=== PATIENT | female | born 2005 | race Caucasian/White ===

== ENCOUNTER 2024-12-09 06:59 | Outpatient (REF) | payer BC, SELFPAY ==
--- NOTE | ~2024-12-09 | US_ITS ---
CLINICAL HISTORY: AMENORRHEA US pelvis transabdominal and transvaginal with color Doppler Comparison: None Findings: Transabdominal scanning performed for overall anatomy. Transvaginal scanning performed for additional detail. LMP: 12/05/2024 Anteverted uterus, normal size and echotexture, measuring 6.2 x 2.3 x 4.1 cm. Possible arcuate uterus MRI would be confirmatory. Nabothian cysts. Well defined endometrium, measuring 2.0 mm in thickness. The right ovary measures, 3.8 x 2.2 x 1.9 cm. Normal sonographic appearance right ovary. The left ovary measures, 3.3 x 1.9 x 1.9 cm. Normal sonographic appearance left ovary. No adnexal masses or fluid collections. Trace free fluid Impression: 1. Equivocal arcuate uterus noncontrast MRI of the pelvis would be confirmatory. 2. Normal thickness endometrium. 3. Normal ovaries/adnexa. This document has been electronically signed by: Aurelio Shaw MD on 12/10/2024 07:41:50
--- OUTSIDE RECORDS SUMMARY | 2024-12-09 07:02 | XMS_ITS | Encounter Summary ---
Author Organization [facility] Address [address] [place] [address] [address] [place] [id number] Care Team Providers Care Employment Representative Name Role Phone Mireya Javier Md Primary Care Provider Unavailabl e Poc, Not Required Pcp Or Unavailable Unavail able Poc, Non [facility] Pcp Or Primary Care Provider Katie vailable Encounter Details Date Type Department Care Team (Late st Contact Info) Description 2003 [facility] [address] [place] [phone] SadiaRosalinda asher SINGLE LIVEBORN BY (Primary Dx) Social History Tobacco Use Types Packs/Day Years Used Date Smoking Tobacco: Never Smokeless Tobacco: Never Alcohol Use Standard Drinks/Week Comments Not Asked 0 (1 standard drink = 0.6 oz pur e alcohol) Comments No Sex and Gender Information Value Date Recorded Sex Assigned at Not on file Legal Sex Female 6:27 PM EDT Gender Identity Not on file Sexual Orientation Not on file documented as of this encounter Progress Notes * 2003 11:59 PM EDTName: Katarina Fleming : 2005Sex: female [facility]#: [id number] Address: [address] [place] [address] (home) Primary MD: DR. MIREYA JAVIER Primary site: [facility] pital: [facility] Mother's Name: ANGEL LUI Father's Name: NOT NOTED Siblings' names: NOT NOTED HISTORY Maternal Age: 39 years G 4 P 1 Ab LC Maternal HBsAg negative Maternal Blood Type: O+ Maternal Group B Strep: negative Pediatric History Vitals Length: 20 (0m) Weight: 8 lbs 14 oz (4.026 kg) HC: 36cm One: 9 Five: 9 Ten: Discharge We ight: 8 lbs 4 oz (3.754 kg) : YES Gestation Age: 38 wks Nourishment Method: Unknown P ediatrics History Comment Blo od type: not determined Quang: not done Hearing Screening: pass Immunization History: Hep B Vacci ne (Recombinant) 2003 HBIG given no Discharge Date: Matern al Complications: None noted Notes: V30.01 - SINGLE DELIVERY. TROUBLE NURSING. 774.6 - F ACIAL JAUNDICE NOTED 04/25. BILI 04/25 - 8.9. documented in this encounter Plan of Treatment Not on file documented as of this encounter Visit Diagnoses Diagnosis Single liveborn, born in hospital, delivered by delivery- Primary documented in this encounter Care Teams Employment Representative Relationship Specialty Start Date End Date Mireya Javier MD PCP - General 03 04/15/18 Poc, Not Required Pcp Or PCP - Payer 02/04/14 Poc, Non [facility] Pcp Or PCP - General 04/16/18 documented as of this encounter
--- OUTSIDE RECORDS SUMMARY | 2024-12-09 07:02 | XMS_ITS | Clinical Summary ---
[facility] Organization [facility] Address [address] [place] [address] [address] Care Team Providers Care Senior Capital Markets Specialist Name Role Phone Poc, Not Required Pcp Or Unavailable Unavail able Poc, Non Atrius Pcp Or Primary Care Provider Katie vailable Allergies No known active allergies Medications albuterol (PROAIR HFA) 90 mcg/actuation HFA Aerosol Inhaler Inhale 2 puffs as instructed every 4-6 hours as needed for cough or wheeze; rinse mouthpiece at least once a week 1 Inhaler 0 5 Active albuterol (PROAIR HFA) 90 mcg/actuation HFA Aerosol Inhaler Inhale 2 puffs as instructed with spacer every 4-6 hours as needed for cough or wheeze; rinse mouthpiece at least once a week 1 Inhaler 0 5 Active levalbuterol (XOPENEX HFA) 45 mcg/actuation HFA Aerosol InhalerIndicati ons:Wheezing 2 puffs with aerochamber 3-4 times a day till cough or wheeze gone 1 Inhaler 0 6 Active Active Problems Problem Noted Date Diagnosed Date Vesicoureteral reflux 01/22/2004 Immunizations Name Administration Dates Next Due DTaP Vaccine 05/01/2008, 4,2003,08/25,2003 HFlu B Conj (PRP-T) 07/25/2004,2003,2002 HFlu B Conj (Unspecified Formulation) 2003 Hep A Vaccine Pedi/Adol-2 Dose Sched 03/06/2017 Hep B Vaccine (Unspecified Formulation) 01/25/2004,2003,2003 Influenza Vaccine (Unspecifi ed Formulation) 07/08/2010,05/04/2009 MMR Vaccine 05/01/2008,2004 Meningococcal ACWY (Menactra ) Conjugate Vaccine 03/25/2015 Pneumococ/Pedi-Conjugate (PCV7) 07/25/20 04,2004,2003,06/25 Polio Vaccine (Inactivated) 05/01/2008,0 2004,2003,06/25 TdaP 03/25/2015 Varicella Vaccine 05/01/2008,2004 Family History Medical History Relation Comments Other Maternal Grandfather aneurysm af ter eye surgery Cancer Maternal Grandmother Hypertension Paternal Grandfather Hypertension Paternal Grandmother Relation Status Comments Maternal Grandfather Maternal Grandmother Paternal Grandfather Alive Paternal Grandmother Alive Social History Tobacco Use Types Packs/Day Years Used Date Smoking Tobacco: Never Smokeless Tobacco: Never Alcohol Use Standard Drinks/Week Comments Not Asked 0 (1 standard drink = 0.6 oz pur e alcohol) Comments No Sex and Gender Information Value Date Recorded Sex Assigned at Not on file Legal Sex Female 6:27 PM EDT Gender Identity Not on file Sexual Orientation Not on file History Length Weight Head Circum Date/Time Gestation Age D/C Weight APGARs Delivery Method Feeding 20 (50.8 cm) 8 lb 14 oz (4.026 kg) 14.17 (36 cm) 2005 38 wks 8 lb 4.4 oz 1min: 9 5mi n: 9 Unknown Obstetrics History Last Filed Vital Signs Vital Sign Reading Time Taken Comments Blood Pressure 104/62 03/06/2017 1:40 PM EDT Pulse 80 10/21/2015 5:09 PM EDT Temperature 36.7 ??C (98 ??F) 10/21/2015 5:09 PM EDT Respiratory Rate - - Oxygen Saturation 98% 10/21/2015 5:09 PM EDT Inhaled Oxygen Concentration - - Weight 54.9 kg (121 lb 2 oz) 03/06/2017 1:40 PM EDT Height 162.6 cm (5' 4 ) 03/06/2017 1:40 PM EDT Body Mass Index 20.79 03/06/2017 1:40 PM EDT Plan of Treatment Health Maintenance Due Date Last Done Comments OFFICE VISIT 2003 HEPATITIS A VACCINE (2 of 2 - 2-dose series) 09/06/2017 03/06/2017 HPV VACCINE (1 - 3-dose series) 2018 CHLAMYDIA SCREENING FEMALE 16-24 2019 HEP B INITIAL SCREENING 2021 HEP C SCREENING 2021 HIV SCREENING 2021 PERIODIC HEALTH REVIEW 2022 LIPID SCREENING 2023 COVID-19 Vaccine ( season) 2024 PAP: UPDATE W EDIT MODIFIERS 2024 DTAP/TDAP/TD VACCINE (7 - Td or Tdap) 03/25/2025 03/25/2015, 05/01/2008, 07/25/2004, Additional history exists FLU SEASONAL (Season Ended) 2025 07/08/2010, 05/04/2009 HEPATITIS B VACCINE Completed 01/25/2004, 2003, 2003 HAEMOPHILUS INFLUENZA VACCINE Completed 07/25/2004, 2003, 2003, Additional history exists PNEUMOCOCCAL VACCINE(S) Aged Out 07/25/20 04, 2004, 2003, Additional history exists No longer eligible based on patient's age to complete this topic POLIO VACCINE Completed 05/01/2008, 04/06, 2003, Additional history exists RUBELLA Completed 05/01/2008, 2004 MENINGOCOCCAL VACCINE (ACWY) Aged Out 03/25/2015 No longer eligible based on patient's age to complete this topic RSV Vaccine Infant//toddler Aged Out No longer eligible based on patient's age to complete this topic Care Teams Senior Capital Markets Specialist Relationship Specialty Start Date End Date Poc, Not Required Pcp Or PCP - Payer 02/04/14 Poc, Non Atrius Pcp Or PCP - General 04/16/18
--- OUTSIDE RECORDS SUMMARY | 2024-12-09 07:02 | XMS_ITS | Clinical Summary ---
Author Organization [facility] Address [address] [place] [phone] Phone Care Team Providers Care Physical Plant Employee Name Role Phone Kim Kim MD Primary Care Provider [phone] Kim Kim MD Unavailable [phone] Allergies No known active allergies Medications Medication Sig Dispensed Refills Start Date End Date Status tretinoin (RETIN-A) 0.025 % cream Apply topically nightly at bedtime. 01/11/2024 Active sulfamethoxazole-tri methoprim (BACTRIM DS) 800-160 mg per tablet Take 1 tablet by mouth 2 (two) times a day. 01/10/2024 Active doxycycline monohydrate (MONODOX) 100 MG capsule Take 100 mg by mouth 2 (two) times a day. 01/11/2024 Active levothyroxine (SYNTHROID) 125 MCG tablet Take 1 tablet (125 mcg total) by mouth every morning. 90 tablet 1 08/28/2024 Active Active Problems Problem Noted Date Diagnosed Date Amenorrhea 02/25/2024 Assessment & Plan (02/25/2024 4:28 PM EDT): S/p depo Last dose 08/29 Has not had menses and denies SA Denies other sx Will be seeing obstetrics gyn physician- rec appt in next 3 mos so can address if menses hasn't returned Depression with anxiety 10/10/2021 Assessment & Plan (02/25/2024 3:32 PM EDT): Sx improved Not taking meds Has not seen therapist Will cont to monitor Assessment & Plan (10/10/2021 8:31 PM EST): Disc resources at length with pt. Pt does not want any counseling or medication if there is risk her parents will know about it as they do not support these interventions. Pt continues on parents insurance. Situation disc w PCP. Offer for PASTEURIZER HELPER or PCP to meet with parents for disc, patient declines. Offered new zpd-dky-opuxyme counseling, pt does not currently have a job. Pt declines any interventions today. States she is safe, not currently thinking of harming herself. Will be at college hopefully in 5mo where she can access counseling without insurance. Contract for safety with pt. Advised to please call back if worsening and to schedule follow up in 1 mo to recehck Dysuria 02/16/2021 Assessment & Plan (02/16/2021 6:02 PM EDT): Dysuria for 24 hours. U/A + 1 WBC. U/C with sens sent. Urine HCG negative. Reviewed importance of completing medications as directed. Increase intake of water. Call if worse or no better in 2-3 days. Current moderate episode of major depressive disorder without prior episode 10/18/2020 Assessment & Plan (05/15/2023 4:37 PM EDT): Pt continues on Fluoxetine 30mg, increased from 20mg 2 mo ago Feels it has helped her depression but may be causing some fatigue. Jordana SI/HI Advised to please schedule an appt with health services or with this office when home for exam/labs for fatigue. If not a medical issue may need to change dosing or medication To follow up with office after appt with health provider. Continue with counselor, just restarted 1 week ago Assessment & Plan (03/22/2023 12:45 PM EDT): D/w pt rec counselor as soon as returns to [facility] Will adjust fluoxetine to 30mg and f/u by VV in 1mos Sooner prn Use and potential SE including increase risk of SI discussed Pt agrees to plan Assessment & Plan (02/15/2023 10:06 AM EDT): With some anxiety D/w pt at length Denies self harm/SI Will start fluoxetine 10mg qd x7d, then 20mg qd Use and potential SE discussed including increased risk of SI F/u 4weeks, sooner prn Also d/w patient she needs to see therapist- rec set up appt with counselor at [facility] Assessment & Plan (10/18/2020 7:46 PM EDT): D/w pt at length Many stressors due to medical issues, hybrid learning, family stressors Pt would like to speak to counselor-will have speak to Moraima AMIN today Will pursue outpt therapy ACL tear 04/21/2020 Assessment & Plan (05/11/2021 11:13 AM EDT): S/p repair Followed by ortho Starting PT next wk Assessment & Plan (05/03/2020 9:43 AM EDT): Due to have surgery in couple of weeks Sprain of medial collateral ligament of right kn ee 04/21/2020 Pain in right knee 04/21/2020 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 Clinically euthyroid except for a little fatigue, but TSH likely elevated due to the fact that she is missing a lot of doses of her medication. I have advised her to consistently take her medication, or if she forgets, to double up the next day. Once she is consistently taking the medication, I would repeat labs in 1 month. Interestingly, ciprofloxacin can decrease thyroid absorption. Glad that she is improved and off the medication. Assessment & Plan (10/18/2020 7:46 PM EDT): Will check TSH given recent fatigue and dysmorphic mood Assessment & Plan (05/03/2020 9:43 AM EDT): Followed by endo-no sx and euthyroid last mos Due for repeat labs this mos Assessment & Plan (04/02/2020 10:15 AM EDT): Her hypothyroidism is due to Steph's thyroiditis. Interesting she accidentally took double the dose of levothyroxine and her TFT's after 2 months on the higher dose was normal. Thus she may need this much. However, since TSH is borderline low, will repeat in 1 month to make sure her levels stay normal, or sooner if symptoms of hyperthyroidism. Discussed symptoms and how she can double up the next day if she misses a dose. Assessment & Plan (09/18/2019 1:06 PM EST): Based upon her degree of TSH elevation, Katarina has primary hypothyroidism of some duration. Resolved Problems Problem Noted Date Diagnosed Date Resolved Date Urinary tract infection without hematuria 07/02/2021 02/15/2023 Assessment & Plan (07/02/2021 12:45 PM EST): Patient with symptoms appear consistent with a urinary tract infection. Patient taking zuqx-wsx-ldfrjaq medication urine is orange unable to get a UA in office. We will send you for UA INJECTOR ASSEMBLER. We will treat presumptively for urinary tract infection Macrobid 1 tab 2 times a day for 7 days patient previously tested positive for UTI on 05/18/2021 susceptible to Macrobid. Discussed with patient she should follow-up with her PCP due to frequent urinary tract infections. Plenty of fluids hqdx-nlr-fpvzyad medication symptom control Oral contraceptive prescribed 05/11/2021 02/15/2023 Assessment & Plan (05/11/2021 11:14 AM EDT): LMP 2wks ago Will try loestrin Reviewed use and potential SE F/u in 3mos, sooner prn Immunizations Name Administration Dates Next Due COVID-19 (Pre-05/28) Pfizer Vaccine, mRNA, PF 08/03/2021,07/06/2021 DTaP 05/01/2008, 4,2003,08/25,2003 HPV9 02/25/2024,02/15/2023 Hepatitis A, ped/adol, 2 dose 04/24/2019, 017 Hepatitis B, unspecified formulation 01/25/2004, 2003,2003 Hib, unspecified formulation 2003 Hib,PRP-T 07/25/2004,2003,2003 IPV 05/01/2008, 4,2003,06/25 Influenza Quadrivalent Prese rvative Free IM 05/11/2021,05/03/2020 Influenza, Unspecified Formulation 07/08/2010, MMR 05/01/2008,2004 Meningococcal B, OMV (MenB-4C) 05/11/2021,2019 Meningococcal MCV4O 05/03/2020 Meningococcal MCV4P 03/25/2015 Pneumococcal conjugate, PCV 7 07/25/2004 ,2004,2003,06/25 Tdap 03/25/2015 Varicella 05/01/2008,2004 Family History Medical History Relation Comments No Known Problems Brother No Known Problems Father Heart attack Maternal Grandfather Lethal MS a t age 52 Breast cancer Maternal Grandmother Cancer Maternal Grandmother Intestinal Cervical cancer Maternal Grandmother Skin cancer (non-melanoma) Maternal Grandmother Hypothyroidism Mother Heart failure Paternal Grandfather Onset after mid-50s. Kidney disease Paternal Grandmother Thrombophilia Neg Hx Relation Status Comments Brother Alive Father Maternal Grandfather Maternal Grandmother Mother Paternal Grandfather Paternal Grandmother Social History Tobacco Use Types Packs/Day Years Used Date Smoking Tobacco: Never Smokeless Tobacco: Never Tobacco Cessation:Counseling Given: Not Answered Alcohol Use Standard Drinks/Week Comments Not Currently 0 (1 standard drink = 0.6 oz pure alcohol) rare- couple times a semester Education Answer Date Recorded Are you interested in more education? Not on kinjal e 11/30/2022 Are you concerned about learning? Not on file 11/30/2022 No 11/30/2022 No 11/30/2022 Digital Access Answer Date Recorded No 01/02/2023 No 01/02/2023 Reliable internet access at home? Not on file 01/02/2023 Device with a working camera? Not on file Intimate Partner Violence Answer Date R ecorded Are you denied basic needs s uch as food, clothing, or medical care? No 03/29/2023 In the past 12 months have y ou been in a relationship with a person who hurts, threatens, or tries to control you? No 03/29/2023 Are you denied basic needs s uch as food, clothing, or medical care? No 03/29/2023 In the past 12 months have y ou been in a relationship with a person who hurts, threatens, or tries to control you? No 03/29/2023 Sex and Gender Information Value Date Recorded Sex Assigned at Female 11/28/2022 10:47 PM EDT Gender Identity Female 05/18/2021 9:54 AM EDT Sexual Orientation Not on file Last Filed Vital Signs Vital Sign Reading Time Taken Comments Blood Pressure 118/60 02/25/2024 3:13 PM EDT Pulse 88 02/25/2024 3:13 PM EDT Temperature 36.9 ??C (98.5 ??F) 02/25/2024 3:13 PM ED T Respiratory Rate 10 03/29/2023 12:10 PM EDT Oxygen Saturation 98% 02/25/2024 3:13 PM EDT Inhaled Oxygen Concentration - - Weight 61.3 kg (135 lb 2 oz) 02/25/2024 3:13 PM EDT Height 164.5 cm (5' 4.75 ) 02/25/2024 3:13 PM ED T Body Mass Index 22.66 02/25/2024 3:13 PM EDT Plan of Treatment Upcoming Encounters Date Type Department Care Team (Late st Contact Info) Description 02/25/2025 3:00 PM EDT Office Visit [facility] - [place] [address] [facility] [place] [phone] Unknown, Unknown, MD Kim, Kim Garcia MD [address] [place] [address] [place] [address] [email or web address] Health Maintenance Due Date Last Done Comments INFLUENZA VACCINE (#1) 2024 , 05/03/2020, 07/08/2010, Additional history exists COVID-19 VACCINE ( - season) 2024 08/03/2021, 07/06/2021 PAP SMEAR 2024 HPV VACCINES (3 - 3-dose series) 05/19/2024 02/25/2024, 02/15/2023 DEPRESSION SCREENING 02/24/2025 02/25/2024, 05/11/20 21 SMOKING Hx and SMOKELESS TOBACCO SCREENING 02/24/2025 02/25/2024 TSH LEVEL 02/24/2025 02/25/2024, 10/05, 11/28/2022, Additional history exists Adult Td,Tdap Booster 03/25/2025 03/25/2015 COMBINED DTaP,Tdap,Td (7 - Td or Tdap) 03/25/2025 03/25/2015, 05/01/2008, 07/25/2004, Additional history exists HIB VACCINES Completed 07/25/2004, 10/04, 2003, Additional history exists PNEUMOCOCCAL VACCINES (0-49 years) Aged Out 07/25/2004, 2004, 2003, Additional history exists No longer eligible based on patient's age to complete this topic MMR VACCINES Completed 05/01/2008, 2004 HEPATITIS A VACCINES Completed 04/24/2019, 03/06/20 MENINGOCOCCAL VACCINES (ACWY) Completed 05/03/2020, 03/25/2015 ADOLESCENT UNIVERSAL LIPID SCREENING Completed 05/11/2021 HEPATITIS C SCREENING Completed 08/29/2022 , 08/29/2022, 05/11/2021 HIV ONE-TIME SCREENING (18-65 YEARS) Completed 08/29/2022 Medical Devices Implanted Type Area Automotive Welder Device Identifier Shelf Expiration Date Model / Serial / Lot Pin Pin Left: Knee Procedures Procedure Name Priority Date/Time Associated Diagnosis Comments TSH Routine 02/25/2024 3:57 PM EDT 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 Values above 6.270 muIU/mL suggust hypothyroid states. Values between 0.01-0.51 muIU/mL may be on a thyroidal or non thyroidal basis and require further evaluation. Values above 6.270 muIU/mL suggust hypothyroid states. Blood 02/25/2024 3:57 PM EDT 02/25/2024 4:02 PM EDT Kim Kim MD LAB BLOOD ORDERABL ES [facility], [address] [address], [facility] * Hepatitis C antibody, qualitative (08/29/2022 1:26 PM EST) HCV ANTIBODY Non-Reacti ve Non-Reacti ve [facility], [facility] Blood 08/29/2022 1:26 PM EST 08/29/2022 1:33 PM EST Marlys العراقي CNP LAB BLOOD ORDERABL ES Performing Organization Address City/[facility] Co de Phone Number [address] [address], [facility] * Lipid panel (05/11/2021 11:18 AM EDT) HDL 48 >39 mg/dL [facility] CHOLESTEROL 167 0 - 169 mg/dL [facility] TRIGLYCERIDES 88 0 - 89 mg/dL [facility] LDL 101 50 - 129 mg/dL [facility] NON-HDL CHOLESTEROL 119 mg/dL [facility] Comment:Reference Range: The non-HDL Cholesterol value should not exceed the desired LDL-C by more than 30 mg/dl. Blood 05/11/2021 11:1 8 AM EDT 05/11/2021 11:27 AM EDT Kim Kim MD LAB BLOOD ORDERABL ES Performing Organization Address [facility] Co de Phone Number [address] [address], [facility] from Last 3 Months or Most Recently Relevant to Health Maintenance Care Teams Physical Plant Employee Relationship Specialty Start Date End Date Kim Kim MD [address] [place] [address] [email or web address] PCP - General Pediatrics 02/10/19 Kim Kim MD [address] [place] [address] [email or web address] Insurance Assigned Provider 11/10/23 Additional Source Comments The information contained in this document represents components of the legal health record. It is not the complete legal health record.[facility]
--- OUTSIDE RECORDS SUMMARY | 2024-12-09 07:02 | XMS_ITS | Clinical Summary ---
Author Organization [facility] Address [address] [place] [id number] Care Team Providers Care House Father Name Role Phone Aurelio Sr MD Primary Care Provider [phone] Medications levothyroxine (SYNTHROID) 50 MCG tablet 12.5 MCG PO DAILY@060 0 tablet 06/01/2020 Active Active Problems Problem Noted Date Diagnosed Date Cellulitis, unspecified 01/08/2022 Overview (04/23/2024): Edited by MIHIR CRABTREE on 01/08/2022 Infection following a proced ure, other surgical site, initial encounter 07/09/2020 Overview (04/23/2024): Edited by BETSY OLIVAS MD on 07/09/2020 Social History Tobacco Use Types Packs/Day Years Used Date Smoking Tobacco: Never Assessed Comments Unknown Sex and Gender Information Value Date Recorded Sex Assigned at Not on file Legal Sex Female 4:38 PM EST Gender Identity Not on file Sexual Orientation Not on file Last Filed Vital Signs Vital Sign Reading Time Taken Comments Blood Pressure - - Pulse - - Temperature - - Respiratory Rate - - Oxygen Saturation - - Inhaled Oxygen Concentration - - Weight 59 kg (130 lb) 01/08/2022 1:22 PM EDT Height 165.1 cm (5' 5 ) 01/08/2022 1:22 PM EDT Body Mass Index 21.63 01/08/2022 1:22 PM EDT Plan of Treatment Health Maintenance Due Date Last Done Comments Blood Pressure 2003 Depression Screening 2007 Chlamydia and Gonorrhea Screening 2018 Hepatitis C Screening 2021 DTaP,Tdap,and Td Vaccines (1 - Tdap) 2022 COVID-19 Vaccine (2023-2 5 season) 2024 Cervical Cancer Screening 2024 Pap Smear 2024 Influenza Vaccine (Season Ended) 2025 07/16/20 20 Meningococcal Vaccines Aged Out No lo nger eligible based on patient's age to complete this topic Pneumococcal Vaccine: Pediat rics (0 to 5 Years) and At-Risk Patients (6 to 64 Years) Aged Out No longer eligi ble based on patient's age to complete this topic Medical Devices Implanted Type Area Bucket Turner Device Identifier Shelf Expiration Date Model / Serial / Lot Screw Canc 4.0x34mm Full Thrd Implanted:Qty: 1 on 06/08/2020 / / [id number] Description:Surgeon: CARLOS ENRIQUE CHAVES MD; Implant Inventory: OR; Implant Type: ORTHCON; Implant: [id number]; Implant Site: Operative Site; Implant Count: 1.0 Washer 4.0mm Asnis Ii S/S Implanted:Qty: 1 on 06/08/2020 / / [id number] Description:Surgeon: CARLOS ENRIQUE CHAVES MD; Implant Inventory: OR; Implant Type: ORTHCON; Implant: [id number]; Implant Site: Operative Site; Implant Count: 1.0 Screw Adv Interfer [id number] Implanted:Qty: 1 on 06/08/2020 08/05/2021 / [id number] / [id number] Description:Surgeon: CARLOS ENRIQUE CHAVES MD; Implant Inventory: OR; Implant Type: ORTHCON; Implant: [id number]; Implant Site: Right Knee; Implant Count: 1.0 Rigidloop Adjst Cortical Impln Implanted:Qty: 1 on 06/08/2020 02/03/2024 / [id number] / [id number] Description:Surgeon: CARLOS ENRIQUE CHAVES MD; Implant Inventory: OR; Implant Type: ORTHCON; Implant: [id number]; Implant Site: Right Knee; Implant Count: 1.0 Care Teams House Father Relationship Specialty Start Date End Date Aurelio Sr MD [address] [place] [id number] [facility] - General 08/28/22
--- OUTSIDE RECORDS SUMMARY | 2024-12-09 07:02 | XMS_ITS | Encounter Summary ---
Author Organization [facility] Address [address] [place] [address] [place] [phone] Phone Care Team Providers Care Skiver Box Toe Name Role Phone Kim Kim MD Primary Care Provider [phone] Kim Kim MD Unavailable [phone] Encounter Details Date Type Department Care Team (Late st Contact Info) Description 03/29/2023 Procedure Pass [facility] Endoscopy Admitting Dept Virtual Department [address] [place], [place] [id number] Social History Tobacco Use Types Packs/Day Years Used Date Smoking Tobacco: Never Smokeless Tobacco: Never Alcohol Use Standard Drinks/Week Comments Never 0 (1 standard drink = 0.6 oz pur e alcohol) Education Answer Date Recorded Are you interested [...] AM EDT Sexual Orientation Not on file documented as of this encounter Plan of Treatment Upcoming Encounters Date Type Department Care Team (Late st Contact Info) Description 02/25/2025 3:00 PM EDT Office Visit [facility] - Pediatrics - [place] [address] [place] [address] Unknown, Unknown, Kim Andino MD [address] [place] [phone] [email or web address] documented as of this encounter Visit Diagnoses Not on filedocumented in this encounter Additional Health Concerns Assessment Noted Time PHQ-9 Depression Total Score: 8 05/11/20 21 10:37 AM EDT PHQ-2 Depression Total Score: 2 05/11/20 21 10:37 AM EDT documented as of this encounter Care Teams Skiver Box Toe Relationship Specialty Start Date End Date Kim Kim MD [address] [place] [phone] PCP - General Pediatrics 02/10/19 Kim Kim MD [address] [place] [phone] Insurance Assigned Provider 11/10/23 documented as of this encounter Additional Source Comments The information contained in this document represents components of the legal health record. It is not the complete legal health record.[facility]
--- OUTSIDE RECORDS SUMMARY | 2024-12-09 07:02 | XMS_ITS | Encounter Summary ---
Author Organization [facility] Address [address] [place] [phone] Phone Care Team Providers Care Hoop Maker Machine Name Role Phone Kim Kim MD Primary Care Provider [phone] Kim Kim MD Unavailable [phone] Encounter Details Date Type Department Care Team (Late st Contact Info) Description 05/31/2022 Transcribe Orders Virtual Department [address] [place] [address] John Rivera CNP [address] [place] [phone] [email or web address] Irregular menstruation, unspecified (Primary Dx); Dysmenorrhea, unspecified Social History Tobacco Use Types Packs/Day Years Used Date Smoking Tobacco: Never Smokeless Tobacco: Never Alcohol Use Standard Drinks/Week Comments Never 0 (1 standard drink = 0.6 oz pur e alcohol) Sex and Gender Information Value Date Recorded Sex Assigned at Female 11/28/2022 10:47 PM EDT Gender Identity Female 05/18/2021 9:54 AM EDT Sexual Orientation Not on file documented as of this encounter Plan of Treatment Upcoming Encounters Date Type Department Care Team (Late st Contact Info) Description 02/25/2025 3:00 PM EDT Office Visit [facility] - Pediatrics - [address] [phone] Unknown, Unknown, MD Kim, Kim Garcia MD [address] [place] [id number] [email or web address] documented as of this encounter Results * US PELVIS TRANSABDOMINAL PLUS TRANSVAGINAL (06/14/2022 12:35 PM EST) Anatomical Region Laterality Modality Pelvis, Uterus/Adnexa Ultrasound 06/14/2022 1:32 PM EST Impressions 06/14/2022 1:34 PM EST 1.Normal sonographic appearance of the uterus and bilateral ovaries. Narrative 06/14/2022 1:34 PM EST US PELVIS TRANSABDOMINAL PLUS TRANSVAGINAL TECHNIQUE: Pelvic Ultrasound Transabdominal performed for global imaging of the pelvis. Pelvic Ultrasound Transvaginal performed for detailed imaging of the endometrium and/or adnexa. COMPARISON: There is no prior study available for comparison FINDINGS: Uterus: Size: ??6.5 x 3.2 x 5.6 cm. Orientation: anteverted ??Myometrium: Normal. Endometrium: Normal. Thickness: 8 mm. Nabothian cysts are demonstrated at the cervix Right adnexa: Ovary: Normal. The right ovary measures 4.6 x 2.2 x 3.1 cm. Normal color and spectral Doppler waveform analysis. Left adnexa: Ovary: Normal. The left ovary measures 2.8 x 1.8 x 1.7 cm: Normal color spectral Doppler waveform analysis. Free fluid: No significant free fluid. Procedure Note Jonelle Meredith MD - 06/14/2022 US PELVIS TRANSABDOMINAL PLUS TRANSVAGINAL TECHNIQUE: Pelvic Ultrasound Transabdominal performed for global imagingof the pelvis. Pelvic Ultrasound Transvaginal performed for detailedimaging of the endometrium and/or adnexa. COMPARISON: There is no prior study available for comparison FINDINGS: Uterus: Size: 6.5 x 3.2 x 5.6 cm. Orientation: anteverted Myometrium: Normal. Endometrium: Normal. Thickness: 8 mm. Nabothian cysts are demonstrated at the cervix Right adnexa: Ovary: Normal. The right ovary measures 4.6 x 2.2 x 3.1 cm. Normal color andspectral Doppler waveform analysis. Left adnexa: Ovary: Normal. The left ovary measures 2.8 x 1.8 x 1.7 cm: Normal color spectralDoppler waveform analysis. Free fluid: No significant free fluid. IMPRESSION: 1.Normal sonographic appearance of the uterus and bilateral ovaries. RogelioAmberMaryhernandez Rivera CNP IMG US PELVIS documented in this encounter Visit Diagnoses Diagnosis Irregular menstruation, unspecified- Primary Dysmenorrhea, unspecified Irregular menstruation, unspecified Dysmenorrhea, unspecified documented in this encounter Additional Health Concerns Infection Onset Date Last Indicated Resolved Time CoV-Risk 11/28/2022 11/28/2022 12/09/2022 1:22 AM EDT Assessment Noted Time PHQ-9 Depression Total Score: 8 05/11/20 21 10:37 AM EDT PHQ-2 Depression Total Score: 2 05/11/20 21 10:37 AM EDT documented as of this encounter Care Teams Hoop Maker Machine Relationship Specialty Start Date End Date Kim Kim MD [address] [place] [address] PCP - General Pediatrics 02/10/19 Kim Kim MD [address] [place] [address] Insurance Assigned Provider 11/10/23 documented as of this encounter Additional Source Comments The information contained in this document represents components of the legal health record. It is not the complete legal health record.[facility]
--- OUTSIDE RECORDS SUMMARY | 2024-12-09 07:02 | XMS_ITS | Data Portability ---
Author Organization [place] - [facility] Address [address] [place] [address] Care Team Providers Care National Investigative Producer Name Role Phone JESUS DE LA ROSA Primary Care Provider JESUS DE LA ROSA Referring Provider Assessment Encounter Date Assessment Date Assessment LastModified by Organization Details LastModified Time 11/03/2021 11/03/2021 Assessment: Right knee pain And instability consistent with MCL tear Plan: at this point the patient is going to slowly start to increase her activities as tolerated. She should wear her ACL stabilizing brace while she is playing. We will see her back as needed. All of the patient's questions were answered to their satisfaction. Dr. Wheeler was in to re-evaluate the patient agrees with the above assessment and plan. Work Status: Not available 11/03/2021 15:42:02 01/11/2022 01/11/2022 Assessment: Right knee ACL rupture Right knee postoperative tibial wound infection, right knee wound dehiscence Right knee MCL injury 08/13/2021 Right knee tibial incisional pain 01/08/2022 Previous Surgeries: Right knee anterior cruciate ligament reconstruction with quadriceps autograft and partial lateral meniscectomy 06/08/2020 Right knee tibial wound irrigation and debridement 06/29/2020 Right knee irrigation and debridement with postoperative packing 07/06/[address] Lyons Right knee tibial wound irrigation and debridement with removal of hardware and VAC placement 07/08/[address] Lyons Plan: I reviewed the clinical and radiographic findings with the patient. She has no pain with range of motion of the knee. She has no effusion in the knee. She has no clinical signs of infection. Her problem is the superior portion of the incision which for whatever reason is hyperemic and inflamed. This is tender to palpation. I have talked about the possibility of pes bursitis in this region. She is leaving for [facility] next week. I have offered her a short course of oral steroids which might help with some of the inflammation. We have sent this to her pharmacy. I have given her my contact information and she will e-mail me over the weekend to see if she would need to follow-up before her trip. [email or web address] Not available 01/11/2022 12:13:16 01/30/2022 01/30/2022 Assessment: Right knee ACL rupture Right knee postoperative tibial wound infection, right knee wound dehiscence Right knee MCL injury 08/13/2021 Right knee tibial incisional pain 01/08/2022 Previous Surgeries: Right knee anterior cruciate ligament reconstruction with quadriceps autograft and partial lateral meniscectomy 06/08/2020 Right knee tibial wound irrigation and debridement 06/29/2020 Right knee irrigation and debridement with postoperative packing 07/06/[address] Lyons Right knee tibial wound irrigation and debridement with removal of hardware and VAC placement 07/08/[address] Lyons Plan: I reviewed the clinical and radiographic findings with the patient. She has no pain with range of motion of the knee. She has no effusion in the knee. She has no clinical signs of infection. Her problem is the superior portion of the incision which for whatever reason is hyperemic with continued clear drainage. I have sent her to [facility] to have CBC and CRP labs drawn. We will call her to discuss results thereafter. I recommended keeping the wound covered with a light dressing in the meantime. She should also continue her ciprofloxacin as prescribed. [email or web address] Not available 01/30/2022 14:55:39 07/20/2022 07/20/2022 Assessment: Right knee ACL rupture Right knee postoperative tibial wound infection, right knee wound dehiscence Right knee MCL injury 08/13/2021 Right knee tibial incisional pain 01/08/2022 Previous Surgeries: Right knee anterior cruciate ligament reconstruction with quadriceps autograft and partial lateral meniscectomy 06/08/2020 Right knee tibial wound irrigation and debridement 06/29/2020 Right knee irrigation and debridement with postoperative packing 07/06/[address] Lyons Right knee tibial wound irrigation and debridement with removal of hardware and VAC placement 07/08/[address] Lyons Plan: I reviewed the clinical and radiographic findings with the patient. She has no pain with range of motion of the knee. She has no effusion in the knee. She has no clinical signs of infection. She does appear to be having patellofemoral issues. She did have a quadriceps graft at the time of her surgery. She does not have any evidence of instability. She does continue to have quad atrophy. We recommend working in physical therapy while she is home from school. We will see her back in a month's time prior to her returning to school. Dr. Wheeler was in to reexamine and evaluate the patient and agrees with the assessment and plan. Not available 07/20/2022 08:55:03 08/24/2022 08/24/2022 Assessment: Right knee ACL rupture Right knee postoperative tibial wound infection, right knee wound dehiscence Right knee MCL injury 08/13/2021 Right knee tibial incisional pain 01/08/2022 Previous Surgeries: Right knee anterior cruciate ligament reconstruction with quadriceps autograft and partial lateral meniscectomy 06/08/2020 Right knee tibial wound irrigation and debridement 06/29/2020 Right knee irrigation and debridement with postoperative packing 07/06/[address] Lyons Right knee tibial wound irrigation and debridement with removal of hardware and VAC placement 07/08/[address] Lyons Plan: I reviewed the clinical and radiographic findings with the patient. She has no pain with range of motion of the knee. She has no effusion in the knee. She has no clinical signs of infection. She does appear to be having patellofemoral issues. She did have a quadriceps graft at the time of her surgery. And has moderate atrophy on exam She does not have any evidence of instability. She does continue to have quad atrophy. I think it is very reasonable for her to see a physical therapist and have a functional capacity evaluation. I am not sure what else to offer her other than continued strengthening and therapy exercises try to build up her conditioning. The patient understands this and is happy with this plan. All her questions were answered. She will call us if she has any further issues. [email or web address] Not available 08/24/2022 09:10:17 Plan of Treatment Reminders Order Date Submit Date Provider Last Modified By Organization Details Last Modified Time Details Appointments None recorded. Lab CBC w/ diff 2021 [facility], [address] [place], [address], 14:56:55 C-reactive protein, quantitati ve, serum or plasma 2021 [facility], [address] [place], [address], 17:02:34 Referral physical therapist referral - Right knee patellofem oral pain/quad atrophy status post ACL reconstruc tion and subsequent infection 2021 [email or web address] Not available 09:34:54 Procedures None recorded. Surgeries None recorded. Imaging None recorded. Medication Orders Medrol (Philip) 4 mg tablets in a dose pack 2021 [id number], [address], [place], [id number], 11:56:54 Patient TargetsNo targets recorded. Patient InstructionsNo instructions recorded. Reason for Referral Physical Therapist Referral for Pain of right knee joint Right knee patellofemoral pain/quad atrophy status post ACL reconstruction and subsequent infection Referring Physician: Satish Wheeler, Orthopedic Surgery, Encounter Date: 07/20/2022 Results Created Date Observation Date Name Description Value Unit Range Abnormal Flag Note LastModifiedBy Organization Detail LastModifiedTime 01/31/20 22 01/30/2022 CBC W/AUT O DIFF white blood count 7.3 K/uL 4.0-11 .0 normal Not Available [facility] [address] [place], [address], 01/30/2022 16:38:06 01/31/20 22 01/30/2022 CBC W/AUT O DIFF red blood count 4.53 M/uL 3.80-5 .40 normal Not Available [facility] [address] [place], [address], 01/30/2022 16:38:06 01/31/20 22 01/30/2022 CBC W/AUT O DIFF hemoglobin 13.4 g/dL 11.0-1 6.0 normal Not Available [facility] [address] [place], [address], 01/30/2022 16:38:06 01/31/20 22 01/30/2022 CBC W/AUT O DIFF hematocrit 38.4 % 35.0-4 8.0 normal Not Available [facility] [address] [place], [address], 01/30/2022 16:38:06 01/31/20 22 01/30/2022 CBC W/AUT O DIFF mean cell volume 84.8 fL 80.0-1 00.0 normal Not Available [facility] [address] [place], [address], 01/30/2022 16:38:06 01/31/20 22 01/30/2022 CBC W/AUT O DIFF mean corpuscular hemoglobin 29.6 pg 27.0-3 4.0 normal Not Available [facility] [address] [place] [address], [address], 01/30/2022 16:38:06 01/31/20 22 01/30/2022 CBC W/AUT O DIFF mean corpuscular HGB conc 34.9 g/dL 31.0-3 6.0 normal Not Available [facility] [address] [place] [address], [address], 01/30/2022 16:38:06 01/31/20 22 01/30/2022 CBC W/AUT O DIFF red cell distribution width 11.9 % 11.5-1 5.0 normal Not Available [facility] [address] [place], [address], 01/30/2022 16:38:06 01/31/20 22 01/30/2022 CBC W/AUT O DIFF platelet count 189 K/uL 130-40 0 normal Not Available [facility] [address] [place], [address], 01/30/2022 16:38:06 01/31/20 22 01/30/2022 CBC W/AUT O DIFF mean platelet volume 11.1 fL 9.0-11 .0 high Not Available [facility] [address] [place], [address], 01/30/2022 16:38:06 01/31/20 22 01/30/2022 CBC W/AUT O DIFF neut% 57.5 % 37.0-8 0.0 normal Not Available [facility] [address] [place], [address], 01/30/2022 16:38:06 01/31/20 22 01/30/2022 CBC W/AUT O DIFF lymph % 32.8 % 23.0-4 5.0 normal Not Available [facility] [address] [place], [address], 01/30/2022 16:38:06 01/31/20 22 01/30/2022 CBC W/AUT O DIFF mono % 7.2 % 2.5-14 .0 normal Not Available [facility] [address] [place], [address], 01/30/2022 16:38:06 01/31/20 22 01/30/2022 CBC W/AUT O DIFF eos % 1.5 % 0.5-4. 0 normal Not Available [facility] [address] [place], [address], 01/30/2022 16:38:06 01/31/20 22 01/30/2022 CBC W/AUT O DIFF baso % 0.5 % 0.0-2. 0 normal Not Available [facility] [address] [place], [address], 01/30/2022 16:38:06 01/31/20 22 01/30/2022 CBC W/AUT O DIFF immature gran % 0.5 % 0-1 normal Not Available [facility] [address] [place], [address], 01/30/2022 16:38:06 01/31/20 22 01/30/2022 CBC W/AUT O DIFF NRBC% 0 % 0-0 normal Not Available [facility] [address] [place], [address], 01/30/2022 16:38:06 01/31/20 22 01/30/2022 CBC W/AUT O DIFF neut# 4.2 K/uL 1.9-7. 5 normal Not Available [facility] [address] [place], [address], 01/30/2022 16:38:06 01/31/20 22 01/30/2022 CBC W/AUT O DIFF lymph # 2.4 K/uL 1.2-3. 4 normal Not Available [facility] [address] [place], [address], 01/30/2022 16:38:06 01/31/20 22 01/30/2022 CBC W/AUT O DIFF mono # 0.5 K/uL 0.0-0. 7 normal Not Available [facility] [address] [place], [address], 01/30/2022 16:38:06 01/31/20 22 01/30/2022 CBC W/AUT O DIFF eos # 0.11 K/uL 0.0-0. 7 normal Not Available [facility] [address] [place], [address], 01/30/2022 16:38:06 01/31/20 22 01/30/2022 CBC W/AUT O DIFF baso # 0.0 K/uL 0.0-0. 1 normal Not Available [facility] [address] [place], [address], 01/30/2022 16:38:06 01/31/20 22 01/30/2022 CBC W/AUT O DIFF immature gran # 0.0 K/uL 0.0-0. 1 normal Not Available [facility] [address] [place], [address], 01/30/2022 16:38:06 01/31/20 22 01/30/2022 ERYTH ROCYT E SEDIM ENTAT ION RATE erythrocyte sedimentatio n rate 16 mm/HR 0-20 normal Not Available [facility] [address] [place], [address], 01/30/2022 16:38:07 01/31/20 22 01/30/2022 C-ALFREDA CTIVE PROTE IN INFLA M C-reactive protein inflam < 0.6 mg/dL < 0.6 normal Not Available [facility] [address] [place], [address], 01/30/2022 17:02:34 Result Notes None recorded. Problems Name Problem SNOMED Code Status Onset Date Resolution Date Notes Provider Name and Address Organization Details Recorded Time Injury of cruciate ligament of knee Active 2019 S83.509A:ACL tear Not Available [facility] 0 05:53:58 Lesion of joint Active 2019 S83.411A:Spr ain of medial collateral ligament of right knee, initial encounter Not Available [facility] 0 05:53:59 Pain in right knee Active 2019 M25.561:Pain -Right Knee Not Available [facility] 0 05:53:59 Clinical finding Active 2019 M23.8x1:Othe r internal derangements of right knee Not Available [facility] 0 05:53:59 Problem Notes None recorded. Procedures Surgical History Date Name Laterality Status Provider Name and Address Organization Details Recorded Time Test Interpretation cancelled Davi Chery MD [address] [place], [address], [facility] 03/03/2022 06:07:30 022 Test Interpretation completed MARIS CURRIE [address] [place], [address], [facility] 01/30/2022 14:49:50 022 Test Interpretation completed Davi Chery MD [address] [place], [address], [facility] 01/10/2022 16:30:20 022 Test Interpretation completed Stacey Coon [address] [place], [address], [facility] 11/03/2021 15:03:56 022 Test Interpretation completed Satish Wheeler MD [address] [place], [address], [facility] 10/06/2021 15:25:14 022 Test Interpretation completed Lelo Epps Pac [address] [place], [address], [facility] 09/05/2021 16:47:43 022 SMN Xray Knee (3) completed Stacey Coon [address] [place], [address], [facility] 08/18/2021 08:54:43 022 Test Interpretation completed Stacey Coon [address] [place], [address], [facility] 08/18/2021 08:44:28 021 Test Interpretation completed Satish Wheeler MD [address] [place], [address], [facility] 04/28/2021 17:21:52 021 SMN Xray Knee (3) completed Stacey Coon [address] [place], [address], [facility] 04/07/2021 15:31:25 021 Test Interpretation completed Davi Chery MD [address] [place], [address], [facility] 10/10/2020 06:35:43 021 SMN Xray Knee (2) completed Davi Chery MD [address] [place], [address], [facility] 09/08/2020 17:06:38 021 Test Interpretation completed Davi Chery MD [address] [place], [address], [facility] 09/08/2020 06:46:52 020 SMN Xray Knee (2) completed Davi Chery MD [address] [place], [address], [facility] 06/16/2020 12:39:55 020 Test Interpretation completed Davi Chery MD [address] [place], [address], [facility] 05/26/2020 06:24:40 Orthopedic Surgery completed Stacey Coon [address] [place], [address], [facility] 08/18/2021 08:43:24 Knee Surgery completed Stacey Coon [address] [facility] [place], [address], [facility] 08/18/2021 08:43:24 Imaging Results None recorded. Procedure Notes None recorded. Medical Equipment None Reported. Medications Name Sig Start Date Stop Date Status Note LastModified by Organization Details LastModified Time amoxicillin 500 mg capsule active Not Available Not Available Not Available prednisone 10 mg tablet TAKE 2 TABLETS BY MOUTH EVERY DAY active Not Available Not Available No t Available ciprofloxac in 750 mg tablet TAKE 1 TABLET BY MOUTH TWICE DAILY FOR 8 DAYS 08/17 completed Not Available Not Available Not Available cetirizine 10 mg tablet TAKE 1 TABLET BY MOUTH DAILY 08/17 completed Not Available Not Available Not Available ibuprofen 800 mg tablet active Not Available Not Available Not Available sulfamethox azole 400 mg-trimetho prim 80 mg tablet TAKE 1 TABLET BY MOUTH TWICE DAILY FOR 10 DAYS active Not Available Not Available No t Available hydrocodone 5 mg-acetamin ophen 325 mg tablet TAKE 1 TABLET BY MOUTH EVERY 4 TO 6 HOURS NEEDED FOR PAIN active Not Available Not Available No t Available phenazopyri dine 200 mg tablet TAKE 1 TABLET BY MOUTH THREE TIMES DAILY NEEDED FOR PAIN active Not Available Not Available No t Available ondansetron HCl 4 mg tablet TK 1 T PO Q 6 H PRN N 08/17 completed Not Available Not Available Not Available ciprofloxac in 250 mg tablet TAKE 3 TABLETS BY MOUTH TWICE DAILY active Not Available Not Available No t Available ciprofloxac in 500 mg tablet TAKE 1 TABLET BY MOUTH EVERY 12 HOURS FOR 14 DAYS active Not Available Not Available No t Available sulfamethox azole 800 mg-trimetho prim 160 mg tablet TAKE 1 TABLET BY MOUTH TWICE DAILY FOR 10 DAYS 08/17 completed Not Available Not Available Not Available levothyroxi ne 25 mcg tablet TAKE 1 TABLET BY MOUTH EVERY MORNING 08/17 completed Not Available Not Available Not Available lorazepam 0.5 mg tablet TAKE 1 TABLET BY MOUTH EVERY 12 HOURS NEEDED FOR ANXIETY 08/17 completed Not Available Not Available Not Available levothyroxi ne 50 mcg tablet TAKE 1 TABLET BY MOUTH EVERY MORNING 08/17 completed Not Available Not Available Not Available levothyroxi ne 125 mcg tablet active Not Available Not Available Not Available mupirocin 2 % topical ointment APPLY TOPICALLY TO THE AFFECTED AREA TWICE DAILY FOR 7 DAYS active Not Available Not Available No t Available methylpredn isolone 4 mg tablets in a dose pack FOLLOW PACKAGE DIRECTION S active Not Available Not Available No t Available medroxyprog esterone 150 mg/mL intramuscul ar suspension active Not Available Not Available N ot Available levothyroxi ne 112 mcg tablet 08/17 completed Not Available Not Available Not Available oxycodone 5 mg tablet TK 1 TO 2 TS PO Q 3 H PRN P 08/17 completed Not Available Not Available Not Available nitrofurant oin monohydrate /macrocryst als 100 mg capsule 08/17 completed Not Available Not Available Not Available Vitamin D3 50 mcg (2,000 unit) tablet TAKE 1 TABLET BY MOUTH DAILY FOR 90 DAYS active Not Available Not Available No t Available Elma 0.25 mg-0.035 mg tablet TAKE 1 TABLET BY MOUTH DAILY 08/17 completed Not Available Not Available Not Available Aurovela Fe 1-20 (28) 1 mg-20 mcg (21)/75 mg (7) tablet TAKE 1 TABLET BY MOUTH DAILY active Not Available Not Available No t Available EluRyng 0.12 mg-0.015 mg/24 hr vaginal ring INSERT 1 RING VAGINALLY FOR 3 WEEKS THEN REMOVE FOR 1 WEEK active Not Available Not Available No t Available Vitals None Recorded Social History Question Answer Notes LastModified by Organizat ion Details LastModified Time Tobacco Smoking Status Never Smoker Stacey Chase [facility] [place], [address], [facility] 08/18/2021 08:43:24 Do You Have An Advance Directive? No Information not available 08/18/2021 What Is Your Level Of Alcohol Consumption? None Information not available 08/18/2021 Is Blood Transfusion Acceptable In An Emergency? Yes Information not available 08/18/2021 Are You Currently Employed? No Information not available 08/18/2021 Do You Or Have You Ever Used E-cigarettes Or Vape? Never Used Electronic Cigarettes Information not available 08/18/2021 Have You Had X-rays/imaging For Today's Condition? No Information not available 08/18/2021 Have You Had A Bone Density Screening? No Information not available 08/18/2021 Have You Fallen In The Past Year? No Information no t available 08/18/2021 What Is Your Relationship Status? Single Information not available 08/18/2021 Do You Or Have You Ever Used Smokeless Tobacco? Never Used Smokeless Tobacco Information not available 08/18/2021 Do You Use Any Illicit Or Recreational Drugs? No Information not available 08/18/2021 Sex: Unknown Functional Status Question Answer Note LastModified by Organization D etails LastModified Time Are you able to care for yourself? Yes Information n ot available 08/18/2021 What is your exercise level? Heavy Information not available 08/18/2021 Mental Status None recorded. Family History Nothing Reported Notes:Family Qqyptaj-Pwd-ylt tributory Medical History No medical history recorded. Gynecological HistoryNo gynecological history recorded. Obstetrics History GPAL:G 0 P 0 0 0 0 Past Encounters Encounter ID Performer Location Encounter Start Date Encounter Closed Date Diagnosis/Indication Diagnosis SNOMED-CT Code Diagnosis ICD10 Code Diagnosis Note [id number] [facility] [address] Jesu Dickerson Jr[address] [place] [address] 05/26/2020 12:55:36 05/27/2020 08:48:56 Rupture of anterior cruciate ligament [id number] S83.511D [id number] Davi hCery MD [facility] [address] Basalirio Torres [address] [place] [address] 06/16/2020 08:07:13 06/18/2020 11:43:06 Complete tear, knee, anterior cruciate ligament [id number] S83.511D [id number] [facility] [address] Basalirio Torres [address] [place] [address] 06/28/2020 13:30:18 06/29/2020 10:54:29 Complete tear, knee, anterior cruciate ligament [id number] S83.511S [id number] [facility] rt 1 Jesu Garlandalirio Torres [address] [place] [address] 07/05/2020 10:02:57 07/06/2020 11:32:51 Complete tear, knee, anterior cruciate ligament [id number] S83.511S [id number] [facility] [address] Jayla Torres [address] [place] [address] 09/08/2020 15:59:41 09/08/2020 16:35:57 Postoperative wound infection [id number] T81.40XD Complete t ear, knee, anterior cruciate ligament 563221037 S83.511S [id number] Davi Chery MD [facility] [address] [place] [address] 10/13/2020 15:48:34 10/13/2020 16:14:55 Postoperative wound infection [id number] T81.40XD Complete t ear, knee, anterior cruciate ligament 832547474 S83.511S [id number] Davi Chery MD [facility] 1 Jesu Dickerson Jr[address] [place] [address] 12/13/2020 15:30:36 12/13/2020 16:05:25 Postoperative wound infection [id number] T81.40XD Complete t ear, knee, anterior cruciate ligament [id number] S83.511S [id number] Davi Chery MD [facility] 1 Jesu Dickerson [address] [place] [address] 01/17/2021 15:27:22 01/17/2021 16:58:17 Postoperative wound infection 43587096 T81.40XD Complete t ear, knee, anterior cruciate ligament 577897649 S83.511S [id number] Davi Chery MD [facility] [address] Basalirio Torres [address] [place] [address] 03/02/2021 15:10:25 03/03/2021 09:24:17 Postoperative wound infection 75818226 T81.40XD Complete t ear, knee, anterior cruciate ligament [id number] S83.511S [id number] Satish Wheeler MD [facility] [address] Gillalirio Torres [address] [place] [address] 04/07/2021 14:50:53 04/07/2021 15:48:11 Pain in right knee [id number] M25.561 [id number] Satish Wheeler MD [facility] NBPT [address] [place] [address] 04/28/2021 14:53:55 04/28/2021 15:28:10 Pain in right knee [id number] 60600 M25.561 [id number] Satish Wheeler MD [facility] - [facility] [place] NBPT [address] [facility] [place] [address] 08/18/2021 08:33:44 08/18/2021 09:00:01 Pain in right knee [id number] 60194 M25.561 [id number] Satish Wheeler MD [facility] [place] [address] [facility] [address] 09/05/2021 16:37:05 09/05/2021 16:59:01 Pain in right knee [id number] 96363 M25.561 [id number] Satish Wheeler MD [facility] - [place] NBPT [address] [facility] [place] [address] 10/06/2021 15:21:07 10/06/2021 15:52:59 Pain in right knee [id number] M25.561 [id number] Satish Wheeler MD [facility] - [place] NBPT [address] [place] [address] 11/03/2021 14:47:26 11/03/2021 16:13:05 Pain in right knee [id number] M25.561 [id number] Davi Chery MD [facility] [place] [facility] [address] [place] [address] 01/11/2022 11:39:39 01/11/2022 14:29:47 Pain in right knee [id number] M25.561 Postoperat shanelle wound infection [id number] T81.40XD Complete t ear, knee, anterior cruciate ligament 139700080 S83.511S Pes anseri nus bursitis of right knee [id number] [id number] M70.51 [id number] Sterling Rich MD [facility] - [place] [facility] [address] [place] [address] 01/30/2022 14:39:09 01/30/2022 14:48:48 Pain in right knee [id number] 40512 M25.561 Postoperat shanelle wound infection 02141444 T81.40XD Complete t ear, knee, anterior cruciate ligament 371404201 S83.511S Pes anseri nus bursitis of right knee [id number] 106246 M70.51 [id number] Satish Wheeler MD [facility] [address] [place] [address] 07/20/2022 08:07:41 07/20/2022 09:34:53 Pain of right knee joint [id number] 61536 M25.561 Pain in right knee 56270 62356 85804 M25.561 Postoperat shanelle wound infection 46266530 T81.40XD Complete t ear, knee, anterior cruciate ligament 701017212 S83.511S Pes anseri nus bursitis of right knee 0536235138 998198 M70.51 [id number] Satish Wheeler MD [facility] [address] [place] [address] 08/24/2022 08:51:29 08/24/2022 09:27:00 Pain of right knee joint [id number] 43415 M25.561 Pain in right knee 76749 19640 01353 M25.561 Postoperat shanelle wound infection 36090956 T81.40XD Complete t ear, knee, anterior cruciate ligament 611412299 S83.511S Pes anseri nus bursitis of right knee [id number] 045216 M70.51 Health Concerns Section Related Observation LastModified by Organization Detai ls LastModified Time None Recorded Concern Status LastModified by Organization Details LastModified Time None Recorded Advance Directives Directive N: Payers Encounter Date Sequence Insurance Name Policy Number Policy Bai Covered Member ID Bai Member ID Guarantor Name 11/03/2021 1 [facility]: [employer]OSS [employer]IELD [id number] Sulma Sanchez [id number] Katarina Fleming 01/11/2022 1 [facility]: [employer] [id number] Sulma Sancehz [id number] Katarina Fleming 01/30/2022 1 [employer] [id number] Sulma Sanchez [id number] Katarina Argueta Fleming 07/20/2022 1 [place] [id number] Sulma Sanchez [id number] Katarina Argueta Fleming 08/24/2022 1 [place] [id number] Sulma Sanchez [id number] Katarina Argueta Fleming Notes Date Note Type Note Provider Name and Address Organization Details Recorded Time 11/03/2021 text/html Diagnosis:Right knee pain Previous Surgeries:History of right quad tendon ACL reconstruction 06/07/[address] Chery Date of Injury:new injury on 08/13/2021 History of Present Illness:patient is here for follow-up of her right knee pain. She is almost 3 months out from her MCL injury. She states overall her right knee is doing well. She has been working with physical therapy to build up her strength. No recurrent swelling of the knee. No significant feelings of instability. Stacey Briceñoandro [facility] [address], [place], [address], [facility] 11/03/2021 15:42:18 01/11/2022 text/html Diagnosis:Right knee ACL ruptureRight knee postoperative tibial wound infection, right knee wound dehiscenceRight knee MCL injury 2Right knee tibial incisional pain 01/08/2022 Previous Surgeries:Right knee anterior cruciate ligament reconstruction with quadriceps autograft and partial lateral meniscectomy 06/08/2020Right knee tibial wound irrigation and debridement 06/29/2020Right knee irrigation and debridement with postoperative packing 07/06/[address] Sauer knee tibial wound irrigation and debridement with removal of hardware and VAC placement 07/08/[address] Lyons History of Present Illness: Katarina presents today for new problem. She was seen in the emergency room with increased pain and redness over the tibial incision. She had an ultrasound which was negative for any fluid collection in any blood clots. She had lab work that had negative white blood cell count and CRP below 0.6. ESR was 29. Patient notes that she is feeling marginally better at this time. She is not taking anything for this. She denies any specific trauma to this area. She does wear an ACL brace to play but it does not rub in this area. She did place 3 games which is more than she usually has played. Davi Chery MD [address] [place], [address], [facility] 01/11/2022 12:13:28 01/30/2022 text/html Diagnosis:Right knee ACL ruptureRight knee postoperative tibial wound infection, right knee wound dehiscenceRight knee MCL injury 2Right knee tibial incisional pain 01/08/2022 Previous Surgeries:Right knee anterior cruciate ligament reconstruction with quadriceps autograft and partial lateral meniscectomy 06/08/2020Right knee tibial wound irrigation and debridement 06/29/2020Right knee irrigation and debridement with postoperative packing 07/06/[address] Sauer knee tibial wound irrigation and debridement with removal of hardware and VAC placement 07/08/[address] Lyons History of Present Illness: Katarina presents today for a wound check. She was seen in the emergency room with increased pain and redness over the tibial incision. She had an ultrasound which was negative for any fluid collection in any blood clots. She had lab work that had negative white blood cell count and CRP below 0.6. ESR was 29. Patient notes that she is feeling marginally better at this time. She is not taking anything for this. She denies any specific trauma to this area. She does wear an ACL brace to play but it does not rub in this area. She did place 3 games which is more than she usually has played. Since we last seen her, she reports no fevers or chills. Her wound has been draining scant amounts of clear fluid. She has been replacing a bandage as needed. MARIS CURRIE [address] [place], [address], [facility] 01/30/2022 14:58:16 07/20/2022 text/html Diagnosis:Right knee ACL ruptureRight knee postoperative tibial wound infection, right knee wound dehiscenceRight knee MCL injury 2Right knee tibial incisional pain 01/08/2022 Previous Surgeries:Right knee anterior cruciate ligament reconstruction with quadriceps autograft and partial lateral meniscectomy 06/08/2020Right knee tibial wound irrigation and debridement 06/29/2020Right knee irrigation and debridement with postoperative packing 07/06/[address] Sauer knee tibial wound irrigation and debridement with removal of hardware and VAC placement 07/08/[address] Lyons History of Present Illness: Katarina presents today for re-evaluation of her right knee. She states that her incision has been healed without issues however she has had some increased pain underneath her kneecap for 6 weeks or so. She does not recall specific traumatic event. She states that she gets sharp pain that lasts for several minutes up to 10 minutes at a time and then goes away. She states that sometimes it bothers her in the gym. Jose Coon [address] [place], [address], [facility] 07/20/2022 08:55:25 08/24/2022 text/html Diagnosis:Right knee ACL ruptureRight knee postoperative tibial wound infection, right knee wound dehiscenceRight knee MCL injury 2Right knee tibial incisional pain 01/08/2022 Previous Surgeries:Right knee anterior cruciate ligament reconstruction with quadriceps autograft and partial lateral meniscectomy 06/08/2020Right knee tibial wound irrigation and debridement 06/29/2020Right knee irrigation and debridement with postoperative packing 07/06/[address] Sauer knee tibial wound irrigation and debridement with removal of hardware and VAC placement 07/08/[address] Lyons History of Present Illness: Katarina presents today for re-evaluation of her right knee. She states that her incision has been healed without issues however she has had some increased pain underneath her kneecap. She does not recall specific traumatic event. She has been doing physical therapy for it and tried to strengthen exercises and feels like she has a little bit stronger but does not really feel like it is all that much better. She saw Dr. Vaughn' medical staff assistant at [facility] and has been sent for what sounds like a functional capacity evaluation with physical therapist which is happening tomorrow. Satish Wheeler MD [address] [place], [address], [facility] - [facility] 08/24/2022 09:10:30 OBGyn Episode No OBEpisode recorded.
== END 2024-12-09 07:00 | disposition home or self-care (01) ==
LOC: HO.UMASIMG 06:59
PROVIDERS: Visit Provider Nurse Practitioner Women's Health
DX: N92.6 Irregular menstruation, unspecified (principal)
CPT/HCPCS: 76830; 76856

== ENCOUNTER → 2024-12-09 15:30 | Outpatient (BNV) | payer BC, SELFPAY | PROVIDERS: Visit Provider Radiology Diagnostic Radiology | DX: N91.2 Amenorrhea, unspecified (principal) | CPT/HCPCS: 76830; 76856 ==